=== PATIENT | female | born 1960 | race African-American/Black ===

== ENCOUNTER 2019-04-19 14:48 | Emergency (ER) | payer OTHER, MEDICAID ==
[~2019-04-19] VITALS: Ht 177.8 cm; Wt 77.1 kg
[2019-04-19 14:48] VITALS: BP_SYST 136
--- NOTE | 2019-04-19 14:48 | NUR ---
Patient triaged and placed in waiting room. VSS and patient appears in no acute distress at this time. Accompanied by FAMILY, awaiting available bed, and MD notified of need for MSE.
--- NOTE | 2019-04-19 15:40 | NUR ---
BROUGHT BACK TO BED #4 AND REPORT GIVEN TO MAHOGANY
--- NOTE | 2019-04-19 15:50 | NUR ---
Patient came to ER due to a head injury. Per PT, she was eating at [employer] and hit her head on the table. PT reports nausea but denies vomitting. PT is complaining a headache 6/10. PT is AOx4 and MILO.
--- NOTE | 2019-04-19 16:00 | NUR ---
ER Dr. Vizcarra at bedside examining patient.
--- NOTE | 2019-04-19 16:40 | NUR ---
Patient given written and verbal discharge instructions and verbalizes understanding. ER MD discussed with patient the results and treatment provided. Patient in stable condition. ID arm band removed. Rx of given Tramadol and Zofran. Patient educated on pain management and to follow up with PMD. Pain Scale 0/10. Opportunity for questions provided and answered. Medication side effect fact sheet provided.
[2019-04-19 16:48] VITALS: BP_SYST 136
== END 2019-04-19 16:40 | disposition home or self-care (01) ==
LOC: SED 14:48
DX: F07.81 Postconcussional syndrome (principal); G44.309 Post-traumatic headache, unspecified, not intractable; E11.9 Type 2 diabetes mellitus without complications; R94.31 Abnormal electrocardiogram [ECG] [EKG]
CPT/HCPCS: 70450-TC; 93005; 99284